=== PATIENT | female | born 1960 | race Hispanic/Latino ===

== ENCOUNTER → 2024-10-06 | Day surgery (SDC) | payer BC ==
[2024-10-03 15:45] LABS: BASOPHILS % 0.3 % (0.0-1.0); EOSINOPHILS % 1.8 % (0.0-6.0); LYMPHOCYTES % 28.5 % (18.0-39.1); MONOCYTES % 7.7 % (4.4-11.3); NEUTROPHILS % 61.4 % (38.7-80.0); RED CELL DISTRIBUTION WIDTH 13.3 % (11.7-14.4)
[2024-10-03 16:05] LABS: EST GLOMERULAR FILTRATION RATE 91.0 ML/MIN (>=60)
[~2024-10-06] MED LIST: ALBUTEROL 90 MCG/ACT INHALER INH ONE; ALPRAZOLAM0.25 M1 PO; CEFAZOLIN SODIUM 2 GM ONE; DEXAMETHASONE SOD PHOS INJ 4 MG/ML SDV ONE; DEXMEDETOMIDINE HCL 2 ML ONE; EPHEDRINE SULFATE INJ 50 MG/ML VIAL ONE; GLYCOPYRROLATE INJ 0.2 MG/ML VIAL ONE; LIDOCAINE HCL 2% LOCAL INJ 5 ML SDV VIAL INJ ONE; LISINOPRIL10 MG PO; METOCLOPRAMIDE HCL 10 MG/2ML VIAL ONE; MONTELUKAST SOD10 MG PO; NEOSTIGMINE 1 MG/ML 10ML VIAL ONE; ONDANSETRON HCL INJ 2MG/ML 2ML 2 MG/ML VIAL ONE; OS-CAL 500+D T1 EACH PO; PROPOFOL IV EMULSION 10 MG/ML 20 ML VIAL ONE; ROCURONIUM BROMIDE 1 ML IV ONE; SUCCINYLCHOLINE CHLORIDE 20 MG/ML 10ML VIAL ONE; TYLENOL EXTRA500 MG PO; VENTOLIN HFA18 GM INH; ZOLPIDEM TARTRAT5 MG PO
[2024-10-06] MEDS: LACTATED RINGER'S 1,000 ML ONE (07:54)
[2024-10-06 11:53] VITALS: TEMP 97.1
[2024-10-06 13:00] VITALS: BP 108/75; PULSE 72; RESP 16; O2SAT 95
== END | disposition home or self-care (01) ==
LOC: OR 07:25
PROVIDERS: ATTEND Podiatrist Foot Surgery
DX: T84.84XA Pain due to internal orthopedic prosthetic devices, implants and grafts, initial encounter (principal); M21.621 Bunionette of right foot; M20.31 Hallux varus (acquired), right foot; I10 Essential (primary) hypertension; I25.2 Old myocardial infarction; R73.03 Prediabetes; Z79.84 Long term (current) use of oral hypoglycemic drugs; J45.909 Unspecified asthma, uncomplicated; E66.01 Morbid (severe) obesity due to excess calories; Z85.828 Personal history of other malignant neoplasm of skin; Z01.810 Encounter for preprocedural cardiovascular examination; Z01.812 Encounter for preprocedural laboratory examination; Z01.818 Encounter for other preprocedural examination; Z45.89 Encounter for adjustment and management of other implanted devices; Y83.1 Surgical operation with implant of artificial internal device as the cause of abnormal reaction of the patient, or of later complication, without mention of misadventure at the time of the procedure; Y92.009 Unspecified place in unspecified non-institutional (private) residence as the place of occurrence of the external cause
CPT/HCPCS: 20680; 28110; 28270; 36415; 71046; 80048; 85025; 88300; 93005; C1713 ×2; C1762; J0330; J1100; J2003; J2405; J2704; J2710; J2765; J7121; 76000